=== PATIENT | male | born 1975 | race Caucasian/White ===

== ENCOUNTER 2016-07-15 22:51 | Emergency (ER) | payer SELFPAY ==
--- NOTE | 2016-07-22 18:55 | ER ---
ADMIT: 07/15/2016 RM/LOC: ER [facility] MR#: [id number] [id number] MATTHEW HOWARD [address] [address] Emergency Room Report SEX: M AGE: 40 : 1975 DATE: 07/15/2016 ADDENDUM: This patient comes to the ER because he has a lot of swelling and redness in his left lower leg with pain. He denies any injury. He did mention that four days ago, he got scratched by his cat and he did look up on the internet that he could possibly have cat scratch fever. On physical exam, he does have a cellulitis on his left lower leg, all on the anterior aspect. No pain in his calf or swelling in his calf area. Good pulses to the lower extremity. DIAGNOSIS: Cellulitis to the left leg. DISPOSITION: I wrote a prescription for Keflex and Bactrim and Gallina. He is to follow up with his primary in the next couple of days if it is not getting better. Return to the ER if vomiting, not keeping fluids down, or increased redness. Please see my T-sheet. JIM Dent / Manjinder Bianchi MD / bon JOB #: [id number] CC: Manjinder Bianchi MD, Attending Physician Scott Marin MD, Family Physician
== END 2016-07-16 00:20 | disposition home or self-care (01) ==
LOC: ER 22:51
DX: L03.116 Cellulitis of left lower limb (principal); F17.210 Nicotine dependence, cigarettes, uncomplicated